=== PATIENT | male | born 1975 | race Caucasian/White ===

== ENCOUNTER 2024-12-28 11:54 | Emergency (ER) | payer BC ==
[2024-12-28 12:47] LABS: BASOPHILS ABSOLUTE AUTO 0.1 K/mm3 (0.0-0.2); BASOPHILS PERCENT AUTO 1.5 % (0.0-1.0); EOSINOPHILS ABSOLUTE AUTO 0.8 K/mm3 (0.0-0.4); EOSINOPHILS PERCENT AUTO 14.6 % (0.0-6.0); IMMATURE GRAN ABSOLUTE AUTO 0.01 K/mm3 (0.00-0.05); IMMATURE GRAN PERCENT AUTO 0.2 % (0.0-0.4); LYMPHOCYTES ABSOLUTE AUTO 1.0 K/mm3 (1.0-4.8); LYMPHOCYTES PERCENT AUTO 17.3 % (24.0-44.0); MEAN PLATELET VOLUME 9.2 fl (9.4-12.4); MONOCYTES ABSOLUTE AUTO 0.4 K/mm3 (0.0-0.8); MONOCYTES PERCENT AUTO 7.1 % (0.0-8.0); NEUTROPHILS ABSOLUTE AUTO 3.3 K/mm3 (1.8-7.7); NEUTROPHILS PERCENT AUTO 59.3 % (41.0-71.0); NRBC ABSOLUTE 0.00 (0.00-0.02); NRBC PERCENT 0.0 % (0.0-0.2); PLATELET COUNT,PLT 74 K/mm3 (150-400); RED BLOOD CELL COUNT 3.93 M/mm3 (4.52-5.90); WHITE BLOOD CELL COUNT,WBC 5.48 K/mm3 (3.9-11.3)
[2024-12-28 13:14] LABS: A/G RATIO 0.6 (1-2); ALANINE AMINOTRANSFERASE,ALT 66.0 U/L (16-63); ASPARTATE AMNIOTRANSFERASE,AST 86.0 U/L (15-37); BILIRUBIN TOTAL 2.0 mg/dL (0.2-1.0); BLOOD UREA NITROGEN,BUN 11.0 mg/dL (7-18); CARBON DIOXIDE,CO2 24.0 mEq/L (21-32); CHLORIDE,CL 104.0 mEq/L (98-107); CREATININE 1.3 mg/dL (0.7-1.3); EST CRCL DRUG DOSING (CG) 77.1 mL/min; ESTIMATED GFR 68.0 mL/min (>60); ETHANOL BLOOD MEDICAL 0.22 gm% (0.00); GLUCOSE RANDOM 130.0 mg/dL (70-99); POTASSIUM,K 4.4 mEq/L (3.5-5.1); PROTEIN TOTAL,TP 5.3 g/dl (6.4-8.2); SODIUM,NA 137.0 mEq/L (136-145); TROPONIN I HIGH SENSITIVITY 46.0 pg/mL (<=76)
== END 2024-12-28 13:59 | disposition home or self-care (01) ==
LOC: MERGE 11:54 → JD.ED 11:54
DX: R55 Syncope and collapse (principal)
CPT/HCPCS: 36415; 70450; 70450-26; 71045; 71045-26; 80053; 80307; 83735; 83880; 84484; 85025; 93005; 99285